=== PATIENT | male | born 1990 ===

== ENCOUNTER 2016-07-26 23:18 | Emergency (ER) | payer SELFPAY ==
[~2016-07-26] VITALS: Ht 152.4 cm; Wt 60.5 kg
[2016-07-26 23:33] VITALS: Ht 152.4 cm; Wt 60.5 kg
== END 2016-07-27 01:38 | disposition left against medical advice (07) ==
LOC: E/R 23:18
DX: Z53.21 Procedure and treatment not carried out due to patient leaving prior to being seen by health care provider (principal)